=== PATIENT | female | born 1940 | race Two or more races ===

== ENCOUNTER 2024-07-15 19:13 | Inpatient (IN) | payer OTHER ==
[~2024-07-15] VITALS: Ht 152.4 cm; Wt 55.4 kg
--- NOTE | 2024-07-15 19:30 | ED.PDOC ---
HPI Comments 83-year-old female came to ER via EMS for chest pains. Patient has history of hypertension, diabetes, kidney failure, states she has been feeling unwell for the past 5 days, weakness, shortness of breath, fatigability. Noted fluctuating blood pressure despite medications (200/100 mmHg) For the past 2 days, she has been experiencing left-sided chest pains chest pains, tight, burning, intermittent and nonradiating. Chief Complaint: Chest pain Time Seen by MD: 19:29 Reviewed Notes: Hoof Trimmer Notes Information Source: Patient, Emergency Med Personnel Mode of Arrival: EMS Severity: Moderate Timing: Days Duration: Intermittent Prehospital treatment: 12 Lead EKG Location: Chest (L) Radiation: No Radiation Quality: Burning, Tightness Onset: With Light Exertion Cardiac Risk Factors: HTN, Diabetes PE Risk Factors: None History of: Similar pain in past Associated Signs and Symptoms: SOB Past Medical History PAST MEDICAL HISTORY: CKF, DM, HTN, Thyroid Surgical History: Denies all surgeries PULLER MACHINE History: Denies all PULLER MACHINE Hx Family History Family History: Reviewed,noncontributory to illness Social History Smoker: Non-Smoker Alcohol: Denies ETOH Use Drugs: Denies Drug Use Lives In: Home Constitutional: denies: chills, diaphoresis, fatigue, fever, malaise, sweats, weakness, others EENTM: denies: blurred vision, double vision, ear bleeding, ear discharge, ear drainage, ear pain, ear ringing, eye pain, eye redness, hearing loss, mouth pain, mouth swelling, nasal discharge, nose bleeding, nose congestion, nose pain, photophobia, tearing, throat pain, throat swelling, voice changes, others Respiratory: denies: cough, hemoptysis, orthopnea, SOB at rest, shortness of breath, SOB with excertion, stridor, wheezing, others Cardiovascular: reports: chest pain; denies: dizzy spells, diaphoresis, Dyspnea on exertion, edema, irregular heart beat, left arm pain, lightheadedness, palpitations, PND, syncope, others Gastrointestinal: denies: abdomen distended, abdominal pain, blood streaked bowels, constipated, diarrhea, dysphagia, difficulty swallowing, hematemesis, melena, nausea, poor appetite, poor fluid intake, rectal bleeding, rectal pain, vomiting, others Genitourinary: denies: abnormal vagina bleeding, burning, dyspareunia, dysuria, flank pain, frequency, hematuria, incontinence, pain, , vagina discharge, urgency, others Neurological: denies: dizziness, fainting, headache, left sided numbness, left sided weakness, numbness, paresthesia, pre-existing deficit, right sided numbness, right sided weakness, seizure, speech problems, tingling, tremors, weakness, others Musculoskeletal: denies: back pain, gout, joint pain, joint swelling, muscle pain, muscle stiffness, neck pain, others Integumetry: denies: bruises, change in color, change in hair/nails, dryness, laceration, lesions, lumps, rash, wounds, others Allergic/Immunocompromised: denies: Difficulty Healing, Frequent Infections, Hives, Itching, others Hematologic/Lymphatic: denies: anemia, blood clots, easy bleeding, easy bruising, swollen glands, others Endocrine: denies: excessive hunger, excessive sweating, excessive thirst, excessive urination, flushing, intolerance to cold, intolerance to heat, unexplained weight gain, unexplained weight loss, others Psychiatric: denies: anxiety, bipolar disorder, depression, hopeless, panic disorder, schizophrenia, sleepless, suicidal, others Physical Exam General Appearance: No Apparent Distress, Normal HEENT: Normal ENT Inspection, Pharynx Normal, TMs Normal Neck: Full Range of Motion, Non-Tender, Normal, Normal Inspection Respiratory: Chest Non-Tender, Lungs Clear, No Accessory Muscle Use, No Respiratory Distress, Normal Breath Sounds Cardiovascular: No Edema, No JVD, No Murmur, No Gallop, Normal Peripheral Pulses, Regular Rate/Rhythm Breast Exam: Deferred Gastrointestinal: No Organomegaly, Non Tender, No Pulsatile Mass, Normal Bowel Sounds, Soft Genitalia: Deferred Pelvic: Deferred Rectal: Deferred Extremities: No calf tenderness, Normal capillary refill, Normal inspection, Normal range of motion, Non-tender, No pedal edema Musculoskeletal : Apperance: Normal Neurologic: Alert, exerciser II-XII nml as Tested, No Motor Deficits, Normal Affect, Normal Mood, No Sensory Deficits Cerebellar Function: Normal Reflexes: Normal Skin: Dry, Normal Color, Warm Lymphatic: No Adenopathy Was a procedure done? Was a procedure done?: No CP Differential Dx Differential Diagnosis: Angina, Anxiety / Panic Attack Differential Diagnosis: HTN Essential, HTN Accelerated Differential Diagnosis: Angina, Chest Wall Pain, Costochondritis, Esophageal reflux/spasm, Gastritis, Myocardial Infarction X-Ray, Labs, Meds, VS Vital Signs Date Time Temp Pulse Resp B/P (MAP) Pulse Ox O2 Delivery O2 Flow Rate FiO2 07/15/24 20:23 77 07/15/24 20:02 77 12 96 Room Air* 0 21 07/15/24 19:57 98.1 75 13 166/66 (99) 97 98.1 07/15/24 19:23 87 07/15/24 19:13 97.9 102 18 190/79 (116) 96 Lab Test 07/15/24 20:25 07/15/24 19:30 Range/Units Troponin I High Sensitivity 3 L 4 </=34 ng/L White Blood Count 13.0 H 4.4-10.8 10^3/uL Red Blood Count 4.69 4.0-5.20 10^6/uL Hemoglobin 14.7 12.2-16.2 g/dL Hematocrit 44.5 36.0-46.0 % Mean Corpuscular Volume 94.9 80.0-100.0 fL Mean Corpuscular Hemoglobin 31.4 28.0-32.0 pg Mean Corpuscular Hemoglobin Concent 33.1 32.0-36.0 g/dL Red Cell Distribution Width 12.9 11.8-14.3 % Platelet Count 313 140-450 10^3/uL Mean Platelet Volume 7.9 6.9-10.8 fL Neutrophils (%) (Auto) 67.3 37.0-80.0 % Lymphocytes (%) (Auto) 24.4 10.0-50.0 % Monocytes (%) (Auto) 6.1 0.0-12.0 % Eosinophils (%) (Auto) 1.7 0.0-7.0 % Basophils (%) (Auto) 0.5 0.0-2.0 % Neutrophils # (Auto) 8.7 H 1.6-8.6 10 ^3/uL Lymphocytes # (Auto) 3.2 0.4-5.4 10 ^3/uL Monocytes # (Auto) 0.8 0-1.3 10 ^3/uL Eosinophils # (Auto) 0.2 0-0.8 10 ^3/uL Basophils # (Auto) 0.1 0-0.2 10 ^3/uL Nucleated Red Blood Cells 0.1 % Sodium Level 139 136-145 mmol/L Potassium Level 4.1 3.5-5.1 mmol/L Chloride Level 110 H 98-107 mmol/L Carbon Dioxide Level 20 20-31 mmol/L Anion Gap 9 5-15 Blood Urea Nitrogen 27 H 9-23 mg/dL Creatinine 1.33 H 0.550-1.02 mg/dL Glomerular Filtration Rate Calc 40 >90 mL/min BUN/Creatinine Ratio 20.3 H 10.0-20.0 Serum Glucose 159 H 74-106 mg/dL Calcium Level 10.3 8.7-10.4 mg/dL B-Type Natriuretic Peptide 27.70 0-100 pg/mL CHEST RADIOGRAPH Indication: chest pain Technique: Single frontal view of the chest was obtained Comparison: None FINDINGS: Lines and Tubes: None Lungs: No focal consolidation. Pleura: No effusion. No pneumothorax. Cardiomediastinal contours: Unremarkable. Mild atherosclerotic calcification and uncoiling of the aorta Bones: No acute osseous abnormality. IMPRESSION: No acute cardiopulmonary disease. Time of 1ST Reevaluation: 19:24 Reevaluation 1ST: Unchanged Patient Education/Counseling: Diagnosis, Treatment Family Education/Counseling: No Family Present Departure 1 Departure Time of Disposition: 21:52 (Patient presented with chest pain that was concerning for possible STEMI, ACS, PE, Pneumonia, Muscle Strain, COPD, Dissection. Data: 1. I ordered and reviewed the result of at least 3 labs including a CBC, BMP, and Troponin. 2. I independently interpreted the following tests: EKG which shows sinus arrhythmia and Chest X-ray which shows benign chest.Risk:This patient has a high risk of morbidity due to further diagnostic testing or treatment and may suffer from an acute cardiac or respiratory disorder. Workup reveals concern for ACS and patient should be admitted for further workup and possible expert consultation. ) Impression: Primary Impression: Acute chest pain Additional Impression: Hypertensive emergency Disposition: 09 ADMITTED INPATIENT Admit to: Med Surg Condition: Serious Critical Care Note Critical Care Time?: Yes (35 min-critical care time only) Critical care comment: Active chest pains Authorized and Performed by: Jose Baxter MD Total critical care time: Approximately 32 minutes Due to a high probability of clinically significant, life threatening deterioration, the patient required my highest level of preparedness to intervene emergently and I personally spent this critical care time directly and personally managing the patient. This critical care time included obtaining a history; examining the patient; pulse oximetry; ordering and review of studies; arranging urgent treatment with development of a management plan; evaluation of patient's response to treatment; frequent reassessment; and, discussions with other providers. This critical care time was performed to assess and manage the high probability of imminent, life-threatening deterioration that could result in multi-organ failure. It was exclusive of separately billable procedures and treating other patients and teaching time. Please see my other sections and the rest of the note for further information on patient assessment and treatment. Stability Stability form required: No Heart Score Heart Score: Heart Score Response (Comments) Value History Moderate Suspicious 1 EKG Repolarization Disturb 1 Age >65 2 Risk Factors >3 or Hx ASHD 2 Troponin Normal limit 0 Total 6 I personally scribed for JOSE BAXTER MD ([email or web address]) on 07/15/24 at 19:30. Electronically submitted by Ravinder Nelson ([facility]). I personally scribed for JOSE BAXTER MD ([email or web address]) on 07/15/24 at 20:57. Electronically submitted by Ravinder Nelson ([email or web address]). JOSE BAXTER MD Jul 15, 2024 19:30
[2024-07-15 20:02] VITALS: PULSE 77; RESP 12; O2SAT 96
[2024-07-15 20:08] LABS: Basophils # (auto) 0.1 10 ^3/uL (0-0.2); Basophils % (auto) 0.5 % (0.0-2.0); Eosinophils # (auto) 0.2 10 ^3/uL (0-0.8); Eosinophils % (auto) 1.7 % (0.0-7.0); Hematocrit 44.5 % (36.0-46.0); Hemoglobin 14.7 g/dL (12.2-16.2); Lymphocytes # (auto) 3.2 10 ^3/uL (0.4-5.4); Lymphocytes % (auto) 24.4 % (10.0-50.0); Mean Corpuscular Hemoglobin 31.4 pg (28.0-32.0); Mean Corpuscular Hgb Conc. 33.1 g/dL (32.0-36.0); Mean Corpuscular Volume 94.9 fL (80.0-100.0); Monocytes # (auto) 0.8 10 ^3/uL (0-1.3); Monocytes % (auto) 6.1 % (0.0-12.0); Neutrophils # (auto) 8.7 10 ^3/uL (1.6-8.6); Neutrophils % (auto) 67.3 % (37.0-80.0); Nucleated Red Blood Cells % 0.1 %; Platelet Count (auto) 313 10^3/uL (140-450); Red Blood Cells 4.69 10^6/uL (4.0-5.20); Red Cell Distribution Width 12.9 % (11.8-14.3)
[2024-07-15 20:15] LABS: Potassium 4.1 mmol/L (3.5-5.1); Sodium 139 mmol/L (136-145)
[2024-07-15 20:16] LABS: Anion Gap 9 (5-15); Calcium 10.3 mg/dL (8.7-10.4); Carbon Dioxide 20 mmol/L (20-31)
--- NOTE | 2024-07-15 20:16 | DVH ---
CHEST RADIOGRAPH Indication: chest pain Technique: Single frontal view of the chest was obtained Comparison: None FINDINGS: Lines and Tubes: None Lungs: No focal consolidation. Pleura: No effusion. No pneumothorax. Cardiomediastinal contours: Unremarkable. Mild atherosclerotic calcification and uncoiling of the ao rta Bones: No acute osseous abnormality. IMPRESSION: No acute cardiopulmonary disease.
[2024-07-15 20:22] LABS: BUN/Creatinine Ratio 20.3 (10.0-20.0)
[2024-07-15 20:41] LABS: Blood Urea Nitrogen 27 mg/dL (9-23); Chloride 110 mmol/L (98-107); Glucose 159 mg/dL (74-106)
--- NOTE | 2024-07-15 22:25 | ECG ---
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
--- NOTE | 2024-07-15 22:25 | ECG ---
[facility] Test Date: 2024-07-15 Test Time: 20:23:58 Pat Name: MARTI MEZA Department: ER Room: Gender: F Gig Tender: PENNY : 1940 Requested By: JOSE URBINA Order Number: [id number] Reading MD: Measurements Intervals [place] Rate: 77 P: 21 MT: 152 QRS: -28 QRSD: 96 T: 27 QT: 382 QTc: 433 Interpretive Statements Sinus rhythm Abnormal R-wave progression, late transition Left ventricular hypertrophy Baseline wander in lead(s) I,III,aVL,V2 Please click the below link to view image of tracing.
--- NOTE | 2024-07-15 22:26 | ECG ---
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
[2024-07-15] MEDS ORDERED: MORPHINE SULFATE INJ 2 MG/ml SYRG IV PRN (23:00)
[2024-07-15] MEDS ORDERED: ACETAMINOPHEN 325 MG TAB PO PRN (23:00)
[2024-07-15] MEDS ORDERED: DEXTROSE (50%) 50ML SYRG IV PRN (23:00)
[2024-07-15] MEDS ORDERED: DOCUSATE SOD 100 MG CAP PO PRN (23:00)
[2024-07-15] MEDS ORDERED: ONDANSETRON HCL 4 MG/2 ML VIAL IV PRN (23:00)
[2024-07-15] MEDS ORDERED: NITROGLYCERIN 0.4 MG SL TAB SL PRN (23:00)
[2024-07-15] MEDS ORDERED: hydrALAZINE HCL 20 MG/ML VL IV PRN (23:00)
--- NOTE | 2024-07-15 23:19 | DVHHP2 ---
History of Present Illness Reason for Visit: Acute chest pain History of Present Illness The patient is a 83-year-old female with past medical history of chronic kidney failure, DM, hypertension, and thyroid disease who presented to [facility] ED with complaint of chest pain..Patient reports symptoms progressively get worse with left-sided chest pain, intermittent, nonradiating, associated weakness, shortness of breath, fatigue, getting worse that prompted this visit. Patient was seen and evaluated in the ED, laboratory data shows WBC 13.0, platelets 313, sodium 139, potassium 4.1, BUN 27, creatinine 1.33, GFR 40, glucose 159, troponin 4, BNP 27.70, blood pressure 190/79 trending down to 158/ 68, pulse 76, temperature 98.0 F, O2 saturation 98% on room air. Chest x-ray show no acute cardiopulmonary disease. Please see medication orders section in the computer. On my assessment, patient denies chest pain at this moment, no headache, no dizziness, no diaphoresis, no nausea, no vomiting, no fever, no chills. Patient was admitted for further evaluation and medical management. Past Medical History CKF, DM, HTN, Thyroid Past Surgical History Denies all surgeries Family History Reviewed, noncontributory to the management of this case. Past Social History The patient lives at home, denies smoking, alcohol or illicit drugs abuse. Review of Systems Constitutional: Yes: Weakness; No: Fever, Chills, Sweats, Malaise, Other Eyes: No: Pain, Vision change, Conjunctivae inflammation, Eyelid inflammation, Other, Redness ENT: No: Ear pain, Ear discharge, Nose pain, Nose discharge, Nose congestion, Mouth pain, Mouth swelling, Throat pain, Throat swelling, Other Respiratory: Shortness of breath; No: Cough, Dry, SOB with excertion, Wheezing, Hemoptysis, Pleuritic Pain, Sputum, Wheezing, Other Cardiovascular: Chest Pain; No: Palpitations, Orthopnea, Paroxysmal Noc. Dyspnea, Edema, Lt Headedness, Other Gastrointestinal: No: Nausea, Vomiting, Abdominal Pain, Diarrhea, Constipation, Melena, Hematochezia, Other Genitourinary: No Dysuria, No Frequency, No Incontinence, No Hematuria, No Retention, No Other Musculoskeletal: No: other, neck pain, shoulder pain, arm pain, back pain, hand pain, leg pain, foot pain Skin: No: Rash, Lesions, Jaundice, Bruising, Other Neurological: No: Weakness, Numbness, Incoordination, Change in speech, Confusion, Seizures, Other Exam Vital Signs Vital Signs Date Time Temp Pulse Resp B/P (MAP) Pulse Ox O2 Delivery O2 Flow Rate FiO2 07/15/24 22:15 71 07/15/24 22:00 98.0 14 158/68 (98) 98 98.0 07/15/24 20:02 Room Air* 0 21 General Appearance: Alert, Oriented X3, Cooperative, No acute distress HEENT: Atraumatic, PERRLA, EOMI, Mucous membr. moist/pink Respiratory: Clear to auscultation, Normal air movement Cardiovascular: Regular rate, Normal S1, Normal S2, No murmurs Abdominal: Normal bowel sounds, Soft, No tenderness, No hepatospenomegaly, No masses Extremities: No clubbing, No cyanosis, No edema, Normal pulses, No tenderness/swelling Skin: No rashes, No breakdown, No significant lesion Neuro: Normal speech, Normal tone, Sensation intact, Cranial nerves 3-12 NL, Reflexes 2+, Other (Generalized weakness) Psych/Mental Status: Mental status NL, Mood NL Labs/Xrays Labs Test 07/15/24 22:25 07/15/24 19:30 Range/Units White Blood Count 13.0 H 4.4-10.8 10^3/uL Red Blood Count 4.69 4.0-5.20 10^6/uL Hemoglobin 14.7 12.2-16.2 g/dL Hematocrit 44.5 36.0-46.0 % Mean Corpuscular Volume 94.9 80.0-100.0 fL Mean Corpuscular Hemoglobin 31.4 28.0-32.0 pg Mean Corpuscular Hemoglobin Concent 33.1 32.0-36.0 g/dL Red Cell Distribution Width 12.9 11.8-14.3 % Platelet Count 313 140-450 10^3/uL Mean Platelet Volume 7.9 6.9-10.8 fL Neutrophils (%) (Auto) 67.3 37.0-80.0 % Lymphocytes (%) (Auto) 24.4 10.0-50.0 % Monocytes (%) (Auto) 6.1 0.0-12.0 % Eosinophils (%) (Auto) 1.7 0.0-7.0 % Basophils (%) (Auto) 0.5 0.0-2.0 % Neutrophils # (Auto) 8.7 H 1.6-8.6 10 ^3/uL Lymphocytes # (Auto) 3.2 0.4-5.4 10 ^3/uL Monocytes # (Auto) 0.8 0-1.3 10 ^3/uL Eosinophils # (Auto) 0.2 0-0.8 10 ^3/uL Basophils # (Auto) 0.1 0-0.2 10 ^3/uL Nucleated Red Blood Cells 0.1 % Sodium Level 139 136-145 mmol/L Potassium Level 4.1 3.5-5.1 mmol/L Chloride Level 110 H 98-107 mmol/L Carbon Dioxide Level 20 20-31 mmol/L Anion Gap 9 5-15 Blood Urea Nitrogen 27 H 9-23 mg/dL Creatinine 1.33 H 0.550-1.02 mg/dL Glomerular Filtration Rate Calc 40 >90 mL/min BUN/Creatinine Ratio 20.3 H 10.0-20.0 Serum Glucose 159 H 74-106 mg/dL Calcium Level 10.3 8.7-10.4 mg/dL B-Type Natriuretic Peptide 27.70 0-100 pg/mL PATIENT: MARTI MEZA ACCT: [id number] UNIT: [id number] : 1940 LOC: ER ROOM / BED: / AGE / SEX: 83 / F ADM STATUS: REG ER SERVICE 18 ORDERING PHYSICIAN: JOSE URBINA MD PROCEDURE(s): CXRP - CHEST PORTABLE REASON: chest pain ORDER NUMBER(s): [id number], ACCESSION NUMBER(s): [id number] CHEST RADIOGRAPH Indication: chest pain Technique: Single frontal view of the chest was obtained Comparison: None FINDINGS: Lines and Tubes: None Lungs: No focal consolidation. Pleura: No effusion. No pneumothorax. Cardiomediastinal contours: Unremarkable. Mild atherosclerotic calcification and uncoiling of the aorta Bones: No acute osseous abnormality. IMPRESSION: No acute cardiopulmonary disease. Assessment/Plan Assessment/Plan Acute chest pain Acute renal injury Leukocytosis, unspecified Hypertensive emergency Diabetes mellitus with hyperglycemia Plan 1. Admit to telemetry unit 2. Breathing treatment 3. Pain control management 4. Management of fluids and electrolytes 5. Consultation for hospitalist 6. Diagnostic tests chest x-ray 7. DVT prophylaxis-on aspirin 8. Repeat labs CBC, CMP in a.m. 9. Continue with current medical management 10. Treatment plan discussed with patient and RN. Patient verbalized understanding. Plan discussed with: Patient, Other (RN) My Orders Orders - EMERY GALARZA DNP Procedure Category Date Status Time Aspirin Tablet PHA 07/16/24 Verified 10:00 Problem List: (1) Acute chest pain (2) Acute renal injury (3) Hypertensive emergency (4) Leukocytosis, unspecified (5) Diabetes mellitus with hyperglycemia Date of Service: Jul 15, 2024 Billing Provider: EMERY GALARZA DNP Common Visit Codes: [id number] INP/OBS CARE (HIGH) EMERY GALARZA DNP Jul 15, 2024 23:19
[2024-07-16] VITALS (7 sets, daily range): BP systolic 122–142; BP diastolic 48–70; PULSE 63–73; RESP 12–18; TEMP 97.5–98.6; O2SAT 92–98
[2024-07-16] MEDS: ALPRAZolam 0.25 MG TAB PO SCH (00:47)
[2024-07-16 03:14] LABS: Basophils # (auto) 0.1 10 ^3/uL (0-0.2); Basophils % (auto) 0.4 % (0.0-2.0); Eosinophils # (auto) 0.2 10 ^3/uL (0-0.8); Eosinophils % (auto) 1.9 % (0.0-7.0); Hematocrit 37.2 % (36.0-46.0); Hemoglobin 12.5 g/dL (12.2-16.2); Lymphocytes # (auto) 3.2 10 ^3/uL (0.4-5.4); Lymphocytes % (auto) 26.7 % (10.0-50.0); Mean Corpuscular Hgb Conc. 33.7 g/dL (32.0-36.0); Monocytes # (auto) 0.9 10 ^3/uL (0-1.3); Monocytes % (auto) 7.5 % (0.0-12.0); Neutrophils # (auto) 7.6 10 ^3/uL (1.6-8.6); Neutrophils % (auto) 63.5 % (37.0-80.0); Nucleated Red Blood Cells % 0.1 %; Platelet Count (auto) 284 10^3/uL (140-450); Red Blood Cells 3.92 10^6/uL (4.0-5.20); Red Cell Distribution Width 12.8 % (11.8-14.3)
[2024-07-16 03:38] LABS: Alanine Aminotransferase 13 U/L (7-40); Albumin 3.9 g/dL (3.2-4.8); Alkaline Phosphatase 82 U/L (46-116); Anion Gap 7 (5-15); Aspartate Aminotransferase 17 U/L (13-40); Bilirubin, Total 0.3 mg/dL (0.2-1.0); Blood Urea Nitrogen 22 mg/dL (9-23); Calcium 9.9 mg/dL (8.7-10.4); Carbon Dioxide 24 mmol/L (20-31); Glucose 86 mg/dL (74-106); Potassium 4.1 mmol/L (3.5-5.1); Sodium 141 mmol/L (136-145)
[2024-07-16 03:39] LABS: Total Protein 5.8 g/dL (5.7-8.2)
[2024-07-16 03:45] LABS: Chloride 110 mmol/L (98-107)
[2024-07-16] MEDS: SODIUM CHLOR 0.9% PF (SALINE LOCK) 10ML VIAL/SYR IV SCH (06:00)
[2024-07-16] MEDS: LEVOTHYROXINE SODIUM 25 MCG TAB PO SCH (06:00)
[2024-07-16] MEDS: ACCU-CHEK COMFORT CURVE STRIP VI SCH (07:00)
[2024-07-16] MEDS: InsuLIN REG 1unit/0.01ml Soln (100units/ml) SC SCH ×2 (07:00→22:00)
[2024-07-16] MEDS: ASPirin 81 mg TAB PO SCH (12:47)
[2024-07-16] MEDS: FAMOTIDINE (10MG/ML) 2ML VL IV SCH (12:47)
[2024-07-16] MEDS: LISINOPRIL 5 MG TAB PO SCH (12:48)
[2024-07-16] MEDS: amLODIPine BESYLATE 5 MG TAB PO SCH (12:50)
[2024-07-16] MEDS: CARVEDILOL 3.125 MG TAB PO SCH (12:50)
[2024-07-16] MEDS ORDERED: MAGN400T40 PO (14:25)
[2024-07-16] MEDS ORDERED: TRAM50TA2 PO (14:25)
[2024-07-16] MEDS ORDERED: B-COCAP34 OR (14:25)
[2024-07-16] MEDS ORDERED: AMLO1TAB22 PO (14:25)
[2024-07-16] MEDS ORDERED: CYAN-17 PO (14:25)
[2024-07-16] MEDS ORDERED: ASPI1TAB20 PO (14:25)
[2024-07-16] MEDS ORDERED: CHOL20007 PO (14:25)
[2024-07-16] MEDS ORDERED: MULT-1018 PO (14:25)
[2024-07-16] MEDS ORDERED: LISI10TA34 PO (14:25)
[2024-07-16] MEDS ORDERED: PANT40TA2 PO (14:25)
[2024-07-16] MEDS ORDERED: LEVO50TA7 PO (14:25)
[2024-07-16] MEDS ORDERED: COEN400C8 OR (14:25)
[2024-07-16] MEDS ORDERED: INSLANTI SC (14:25)
[2024-07-16] MEDS ORDERED: MAGN100T6 OR (14:25)
[2024-07-16] MEDS ORDERED: EMPA1TAB PO (14:25)
[2024-07-16] MEDS ORDERED: METF500S3 PO (14:25)
[2024-07-16] MEDS ORDERED: CARV25TA55 PO (14:25)
[2024-07-16] MEDS: ATORVASTATIN 20 MG TAB PO SCH (22:07)
[2024-07-17] VITALS (8 sets, daily range): BP systolic 117–144; BP diastolic 51–69; PULSE 56–70; RESP 16–18; TEMP 97.9–98.4; O2SAT 94–97
[2024-07-17] MEDS: HYDROcodone-ACET 5/325MG TAB PO PRN (05:47)
--- NOTE | 2024-07-17 14:41 | DVHINCON2 ---
Date Seen: Jul 17, 2024 Referring Physician MD Jocelynn Reason for Consultation Chest pain and hypertension History of Present Illness This is an 83-year-old female patient who presents to emergency room with chief complaint of chest pain. The patient reports that the chest pain has been int ermittently going on for approximately one week. She describes it as unprovoked, squeezing in nature, left-sided, and radiating to her left shoulder and down her left arm. The patient does note that she has been recently diagnosed with a torn left shoulder rotator cuff which has not been repaired so she was assuming that the left arm pain was attributed to that. She denies any associated symptoms. The patient reports that she has accidentally missed doses of her antihypertensive and was having trouble controlling her blood pressure at home. Upon emergency room arrival, the patient's blood pressure reached as high as 190/79. Cardiology is now being consulted for chest pain and hypertensive urgency. At the time of assessment, the patient denies any chest pain and blood pressure is now well controlled. Initial twelve lead electrocardiogram reveals normal sinus rhythm with baseline wander seen in multiple leads. Serial troponin levels have been negative. Significant past medical history includes coronary artery disease status post PTCA x 4 JOSE (on ASA), myocardial infarction, hypertension, dyslipidemia, chronic kidney disease, thyroid disease, and type 2 diabetes mellitus . The patient reports that she sees cold reduction roller in the outpatient setting. Past Medical History Past medical history reviewed. No other significant than mentioned above. Past Surgical History Back surgery Family History: Patient reports no known family medical history. Family History Family history reviewed. Social History Denies the use of tobacco, alcohol or illicit drugs. Allergies: Coded Allergies: NO KNOWN ALLERGIES (Unverified , 07/16/24) Home Meds Reported Medications Coenzyme Q10 (Ubidecarenone) (COQ-10) 400 Mg Cap, 400 MG OR, CAP 07/16/24 B-Complex Vitamins (B Complex) Cap, 1 OR, CAP 07/16/24 Cholecalciferol (VITAMIN D3) 2,000 Unit Tab, 1 TAB PO DAILY, #30 TAB 5 Refills 07/16/24 Multiple Vitamin (Multivitamins) Tab, 1 TAB PO DAILY, #90 TAB 3 Refills 07/16/24 Cyanocobalamin (B12) 1,000 Mcg Cap, 1000 MCG PO, CAP 07/16/24 Magnesium Oxide (MAGNESIUM OXIDE) 400 Mg Tab, 1 TAB PO DAILY, #30 TAB 5 Refills 07/16/24 Magnesium Citrate (MAGNESIUM CITRATE) 100 Mg Tab, 100 MG OR PRN, TAB 07/16/24 Insulin Glargine (Lantus) 100 Unit/Ml Inj, 15 UNIT SC DAILY, INJ 07/16/24 Aspirin (Aspir-81) 81 Mg Tab, 1 TAB PO DAILY, #30 TAB 5 Refills 07/16/24 Empagliflozin (Jardiance) 10 Mg Tab, 10 MG PO DAILY, TAB 07/16/24 Pantoprazole Sodium Sesquihydr (Protonix) 40 Mg Tab, 20 MG PO DAILY, #30 TAB 07/16/24 Lisinopril (Lisinopril) 10 Mg Tab, 10 MG PO DAILY, TAB 07/16/24 Amlodipine Besylate (Amlodipine Besylate) 5 Mg Tab, 10 MG PO DAILY for 30 Days, MG 07/16/24 Levothyroxine Sodium (Levothyroxine Sodium) 50 Mcg Tab, 75 MCG PO QAM for 30 Days, MCG 07/16/24 Tramadol Hcl (Tramadol Hcl) 50 Mg Tab, 25 MG PO Q12HP PRN for PAIN SCALE 7 THRU 10, MG 07/16/24 Carvedilol (Carvedilol) 25 Mg Tab, 25 MG PO Q12HR for 30 Days, MG 07/16/24 Metformin HCl (Metformin Hydrochloride) 500 Mg/5 Ml Aminata, 500 MG PO BID, ML 07/16/24 Home Meds Home medications reviewed. Current Medications Current Medications Medications (Trade) Dose Ordered Sig/Marko Route PRN Reason Start Time Stop Time Status Last Admin Atorvastatin Calcium (Lipitor) 10 mg HS PO 07/16/24 22:00 07/16/24 22:07 Insulin Human Regular (InsuLIN R) HS SC 07/16/24 22:00 Review of Systems Constitutional: No symptom reported Ears, Nose, & Throat: No symptom reported Eyes: No symptom reported Neurological: No symptoms reported Pulmonary/Respiratory: No symptoms reported Cardiovascular: Chest pain Gastrointestinal: No symptom reported Genitourinary: No symptom reported Musculoskeletal: No symptom reported Skin: No symptom reported Psychiatric: No symptom reported Endocrine: No symptom reported Hematologic/Lymphatic: No symptom reported Vital Signs Vital Signs Date Time Temp Pulse Resp B/P (MAP) Pulse Ox O2 Delivery O2 Flow Rate FiO2 07/17/24 10:39 60 130/56 07/17/24 08:59 97.9 18 96 97.9 07/16/24 20:00 Room Air* 0 21 Physical Exam General Appearance: Cooperative. Well-developed. Well-nourished. No acute distress. Pulmonary/Respiratory: Clear, bilateral breaths sounds. Cardiovascular/Chest: Regular rate and rhythm. Peripheral Pulses: 2+ Radial (R). 2+ Radial (L). 2+ Pedal (R). 2+ Pedal (L) Abdominal Exam: Normal bowel sounds. Ankle Exam: Negative ankle edema Lower extremities: Negative lower extremity edema Neuro/Mental Status: A/OX4, coherent. Thoughts/Psych: Normal thought pattern. Appropriate mood and affect. Good judgment and insight. Appearance: No acute distress. Skin Exam: Normal inspection. Normal color. Warm and dry. Labs/Diagnostic Data Labs Test 07/17/24 05:56 07/16/24 02:56 07/15/24 22:25 07/15/24 19:30 Range/Units POC Glucose 142 H 70-106 mg/dl White Blood Count 12.0 H 4.4-10.8 10^3/uL Red Blood Count 3.92 L 4.0-5.20 10^6/uL Hemoglobin 12.5 12.2-16.2 g/dL Hematocrit 37.2 # 36.0-46.0 % Mean Corpuscular Volume 95.0 80.0-100.0 fL Mean Corpuscular Hemoglobin 32.0 28.0-32.0 pg Mean Corpuscular Hemoglobin Concent 33.7 32.0-36.0 g/dL Red Cell Distribution Width 12.8 11.8-14.3 % Platelet Count 284 140-450 10^3/uL Mean Platelet Volume 7.6 6.9-10.8 fL Neutrophils (%) (Auto) 63.5 37.0-80.0 % Lymphocytes (%) (Auto) 26.7 10.0-50.0 % Monocytes (%) (Auto) 7.5 0.0-12.0 % Eosinophils (%) (Auto) 1.9 0.0-7.0 % Basophils (%) (Auto) 0.4 0.0-2.0 % Neutrophils # (Auto) 7.6 1.6-8.6 10 ^3/uL Lymphocytes # (Auto) 3.2 0.4-5.4 10 ^3/uL Monocytes # (Auto) 0.9 0-1.3 10 ^3/uL Eosinophils # (Auto) 0.2 0-0.8 10 ^3/uL Basophils # (Auto) 0.1 0-0.2 10 ^3/uL Nucleated Red Blood Cells 0.1 % Sodium Level 141 136-145 mmol/L Potassium Level 4.1 3.5-5.1 mmol/L Chloride Level 110 H 98-107 mmol/L Carbon Dioxide Level 24 20-31 mmol/L Anion Gap 7 5-15 Blood Urea Nitrogen 22 9-23 mg/dL Creatinine 1.16 H 0.550-1.02 mg/dL Glomerular Filtration Rate Calc 47 >90 mL/min BUN/Creatinine Ratio 19.0 10.0-20.0 Serum Glucose 86 74-106 mg/dL Calcium Level 9.9 8.7-10.4 mg/dL Total Bilirubin 0.3 0.2-1.0 mg/dL Aspartate Amino Transferase (AST) 17 13-40 U/L Alanine Aminotransferase (ALT) 13 7-40 U/L Alkaline Phosphatase 82 46-116 U/L Total Protein 5.8 5.7-8.2 g/dL Albumin 3.9 3.2-4.8 g/dL Troponin I High Sensitivity 5 </=34 ng/L Thyroid Stimulating Hormone (TSH) 1.83 0.55-4.78 uIU/mL B-Type Natriuretic Peptide 27.70 0-100 pg/mL Assessment Chest pain, rule out progressive coronary artery disease Coronary artery disease status post PTCA X 4 JOSE (on ASA) Hypertensive urgency, resolved Rule out structural heart disease History myocardial infarction Dyslipidemia Chronic kidney disease Thyroid disease Type 2 diabetes mellitus Plan/Recommendation We will continue with the following plan/recommendations (Dr. Lopez): * Transthoracic echocardiogram to evaluate cardiac function * Chest pain protocol * HEART score: 6 points (moderate) * Aggressive BP control * Single antiplatelet therapy and lipid-lowering agents * Recommend nuclear stress test-patient refused Patient seen and examined at bedside with . Given the patient's clinical presentation and significant cardiac history, we recommended that the patient undergo a nuclear stress test. At this time, the patient was adamantly refusing any further inpatient cardiac workup. Educated patient on need for further inpatient cardiac workup, she is still refusing. In setting of an unremarkable transthoracic echocardiogram, cardiology will sign off. The patient reports that she has a pending appointment with her primary cold reduction roller Dr. Alonso later this month. Thank you for allowing us to care for this patient. Please call with any questions or concerns. Critical care time spent: 40 minutes This medical document was created using an electronic medical record system with voice recognition software and computerized dictation system. Although this document has been carefully reviewed, there might still be some phonetic and typographical errors. Occasional wrong-word or ``sound-alike substitutions may have occurred due to the inherent limitations of voice recognition software. These areas are purely typographical due to imperfections of the software programs and do not reflect any compromise in the patient's medical care. Please read the chart carefully and recognize, using context, where these substitutions have occurred. Plan discussed with: Patient NYHA Physical activity limitations: NA Date of Service: Jul 17, 2024 Billing Provider: ELVIA ZUNIGA Cardiology Common Codes: [id number] INP/OBS CARE (High) Cardiology Consultation Codes: [id number] CONSULT <45MIN ELVIA ZUNIGA Jul 17, 2024 14:41
--- NOTE | 2024-07-17 23:38 | DVHPN2 ---
Subjective The patient seen and examined at bedside. Still have chest pain and shortness of breath. Reviewed: Care Plan, H&P, Labs, Medications, Previous Orders, Radiology Changes from previous H/P or p: No Changes Eyes: No Pain, No Vision change, No Conjunctivae inflammation, No Eyelid inflammation, No Other, No Redness ENT: No Ear pain, No Ear discharge, No Nose pain, No Nose discharge, No Nose congestion, No Mouth pain, No Mouth swelling, No Throat pain, No Throat swelling, No Other Cardiovascular: Chest Pain; No Palpitations, No Orthopnea, No Paroxysmal Noc. Dyspnea, No Edema, No Lt Headedness, No Other Respiratory: No Cough, No Dry; Shortness of breath; No SOB with excertion, No Wheezing, No Hemoptysis, No Pleuritic Pain, No Sputum, No Other Gastrointestinal: No Nausea, No Vomiting, No Abdominal Pain, No Diarrhea, No Constipation, No Melena, No Hematochezia, No Other Genitourinary: No Dysuria, No Frequency, No Incontinence, No Hematuria, No Retention, No Other Musculoskeletal: No other, No neck pain, No shoulder pain, No arm pain, No back pain, No hand pain, No leg pain, No foot pain Skin: No Rash, No Lesions, No Jaundice, No Bruising, No Other Objective Vitals Vital Signs Date Time Temp Pulse Resp B/P (MAP) Pulse Ox O2 Delivery O2 Flow Rate FiO2 07/16/24 21:36 70 144/46 07/16/24 21:00 98.4 18 97 98.4 07/16/24 20:00 Room Air* 0 21 Intake/Output Intake and Output 07/17/24 07:00 Intake Total 518 ml Balance 518 ml Intake Oral 518 ml # Voids 4 General Appearance: Alert, Oriented X3, Cooperative, No acute distress HEENT: Atraumatic, PERRLA, EOMI, Mucous membr. moist/pink Neck: Supple Lungs: Clear to auscultation, Normal air movement Cardiovascular: Regular rate, Normal S1, Normal S2, No murmurs, Gallops, Rubs Neuro: Cranial nerves 3-12 NL Psych/Mental Status: Mental status NL Medications Current Medications Medications Dose Ordered Sig/Marko Route Start Time Stop Time Status Last Admin Dose Admin Aspirin 81 mg DAILY PO 07/16/24 10:00 07/17/24 09:34 81 MG Atorvastatin Calcium 10 mg HS PO 07/16/24 22:00 07/16/24 22:07 10 MG Hydralazine HCl 10 mg Q6HP PRN IV 07/15/24 23:00 Amlodipine Besylate 5 mg DAILY PO 07/16/24 10:00 07/17/24 09:37 5 MG Carvedilol 6.25 mg Q12HR PO 07/16/24 10:00 07/17/24 21:36 6.25 MG Lisinopril 10 mg DAILY PO 07/16/24 10:00 07/17/24 09:38 10 MG Famotidine 20 mg DAILY IV 07/16/24 10:00 07/17/24 09:33 20 MG Levothyroxine Sodium 75 mcg QAM@0600 PO 07/16/24 06:00 07/17/24 05:41 75 MCG Diagnostic Test (Pha) 1 strip ACHS 07/16/24 07:00 07/17/24 21:40 1 STRIP Insulin Human Regular HS SC 07/16/24 22:00 07/17/24 21:46 2 UNITS Insulin Human Regular AC SC 07/16/24 07:00 07/17/24 17:00 6 UNITS Dextrose 50 ml UD PRN IV 07/15/24 23:00 Sodium Chloride 10 ml Q8HR IV 07/16/24 06:00 07/17/24 21:38 10 ML Acetaminophen/ Hydrocodone Bitart 1 tab Q4HP PRN PO 07/15/24 23:00 07/17/24 05:47 1 TAB Ondansetron HCl 4 mg Q4HP PRN IV 07/15/24 23:00 Docusate Sodium 100 mg BIDPRN PRN PO 07/15/24 23:00 Acetaminophen 650 mg Q6HP PRN PO 07/15/24 23:00 Nitroglycerin 0.4 mg Q5MINP PRN SL 07/15/24 23:00 Morphine Sulfate 2 mg Q30M PRN IV 07/15/24 23:00 Alprazolam 0.25 mg HS PO 07/16/24 00:45 07/17/24 21:39 0.25 MG Laboratory Results Laboratory Tests 07/16/24 02:56 Labs and/or images reviewed: Labs reviewed by me Assessment/Plan Assessment/Plan Acute chest pain Acute renal injury Leukocytosis, unspecified Hypertensive emergency Diabetes mellitus with hyperglycemia Continue current management. Continue IV fluid. Continue HTN meds. Continue sliding scale insulin. I will consult manager clinical research. Plan discussed with: Patient My Orders Orders - VAUGHN GRAY MD Procedure Category Date Status Time * Cardiology Consult CONS 07/17/24 Transmitted 14:03 Date of Service: Jul 16, 2024 Billing Provider: VAUGHN GRAY MD Common Visit Codes: [id number] INP/OBS CARE(HIGH) VAUGHN GRAY MD Jul 17, 2024 23:38
--- NOTE | 2024-07-17 23:38 | DVHPN2 ---
Subjective The patient seen and examined at bedside. Still have some chest heaviness. Reviewed: Care Plan, H&P, Labs, Medications, Previous Orders, Radiology Changes from previous H/P or p: No Changes Eyes: No Pain, No Vision change, No Conjunctivae inflammation, No Eyelid inflammation, No Other, No Redness ENT: No Ear pain, No Ear discharge, No Nose pain, No Nose discharge, No Nose congestion, No Mouth pain, No Mouth swelling, No Throat pain, No Throat swelling, No Other Cardiovascular: Chest Pain; No Palpitations, No Orthopnea, No Paroxysmal Noc. Dyspnea, No Edema, No Lt Headedness, No Other Respiratory: No Cough, No Dry; Shortness of breath; No SOB with excertion, No Wheezing, No Hemoptysis, No Pleuritic Pain, No Sputum, No Other Gastrointestinal: No Nausea, No Vomiting, No Abdominal Pain, No Diarrhea, No Constipation, No Melena, No Hematochezia, No Other Genitourinary: No Dysuria, No Frequency, No Incontinence, No Hematuria, No Retention, No Other Musculoskeletal: No other, No neck pain, No shoulder pain, No arm pain, No back pain, No hand pain, No leg pain, No foot pain Skin: No Rash, No Lesions, No Jaundice, No Bruising, No Other Objective Vitals Vital Signs Date Time Temp Pulse Resp B/P (MAP) Pulse Ox O2 Delivery O2 Flow Rate FiO2 07/17/24 21:36 70 144/46 07/17/24 21:00 98.4 18 97 98.4 07/17/24 20:00 Room Air* 0 21 Intake/Output Intake and Output 07/17/24 07:00 Intake Total 518 ml Balance 518 ml Intake Oral 518 ml # Voids 4 General Appearance: Alert, Oriented X3, Cooperative, No acute distress HEENT: Atraumatic, PERRLA, EOMI, Mucous membr. moist/pink Neck: Supple Lungs: Clear to auscultation, Normal air movement Neuro: Cranial nerves 3-12 NL Psych/Mental Status: Mental status NL Medications Current Medications Medications Dose Ordered Sig/Marko Route Start Time Stop Time Status Last Admin Dose Admin Aspirin 81 mg DAILY PO 07/16/24 10:00 07/17/24 09:34 81 MG Atorvastatin Calcium 10 mg HS PO 07/16/24 22:00 07/16/24 22:07 10 MG Hydralazine HCl 10 mg Q6HP PRN IV 07/15/24 23:00 Amlodipine Besylate 5 mg DAILY PO 07/16/24 10:00 07/17/24 09:37 5 MG Carvedilol 6.25 mg Q12HR PO 07/16/24 10:00 07/17/24 21:36 6.25 MG Lisinopril 10 mg DAILY PO 07/16/24 10:00 07/17/24 09:38 10 MG Famotidine 20 mg DAILY IV 07/16/24 10:00 07/17/24 09:33 20 MG Levothyroxine Sodium 75 mcg QAM@0600 PO 07/16/24 06:00 07/17/24 05:41 75 MCG Diagnostic Test (Pha) 1 strip ACHS 07/16/24 07:00 07/17/24 21:40 1 STRIP Insulin Human Regular HS SC 07/16/24 22:00 07/17/24 21:46 2 UNITS Insulin Human Regular AC SC 07/16/24 07:00 07/17/24 17:00 6 UNITS Dextrose 50 ml UD PRN IV 07/15/24 23:00 Sodium Chloride 10 ml Q8HR IV 07/16/24 06:00 07/17/24 21:38 10 ML Acetaminophen/ Hydrocodone Bitart 1 tab Q4HP PRN PO 07/15/24 23:00 07/17/24 05:47 1 TAB Ondansetron HCl 4 mg Q4HP PRN IV 07/15/24 23:00 Docusate Sodium 100 mg BIDPRN PRN PO 07/15/24 23:00 Acetaminophen 650 mg Q6HP PRN PO 07/15/24 23:00 Nitroglycerin 0.4 mg Q5MINP PRN SL 07/15/24 23:00 Morphine Sulfate 2 mg Q30M PRN IV 07/15/24 23:00 Alprazolam 0.25 mg HS PO 07/16/24 00:45 07/17/24 21:39 0.25 MG Laboratory Results Laboratory Tests 07/16/24 02:56 Labs and/or images reviewed: Labs reviewed by me Assessment/Plan Assessment/Plan Acute chest pain Acute renal injury Leukocytosis, unspecified Hypertensive emergency Diabetes mellitus with hyperglycemia Continue current management. Continue IV fluid. Continue HTN meds. Continue sliding scale insulin. Appreciate electric welder input. Waiting for echo. Plan discussed with: Patient My Orders Orders - VAUGHN GRAY MD Procedure Category Date Status Time * Cardiology Consult CONS 07/17/24 Transmitted 14:03 Date of Service: Jul 17, 2024 Billing Provider: VAUGHN GRAY MD Common Visit Codes: [id number] INP/OBS CARE(HIGH) VAUGHN GRAY MD Jul 17, 2024 23:38
[2024-07-18 05:00] VITALS: BP 134/63; PULSE 62; RESP 18; TEMP 98.4; O2SAT 94
[2024-07-18] MEDS ORDERED: EZET-10 PO (06:39)
[2024-07-18 08:00] VITALS: PULSE 60
[2024-07-18 08:15] VITALS: PULSE 59; RESP 18
[2024-07-18 09:00] VITALS: BP 146/67; PULSE 59; RESP 18; TEMP 97.9; O2SAT 96
--- NOTE | 2024-07-18 11:08 | DVHDS2 ---
Discharge Summary Date of Admission Jul 15, 2024 at 22:56 Date of Discharge: Jul 18, 2024 Labs/Diagnostic Data: Laboratory Results Test 07/18/24 05:46 07/16/24 02:56 07/15/24 22:25 07/15/24 19:30 POC Glucose 172 mg/dl (70-106) White Blood Count 12.0 10^3/uL (4.4-10.8) Red Blood Count 3.92 10^6/uL (4.0-5.20) Hemoglobin 12.5 g/dL (12.2-16.2) Hematocrit 37.2 % (36.0-46.0) Mean Corpuscular Volume 95.0 fL (80.0-100.0) Mean Corpuscular Hemoglobin 32.0 pg (28.0-32.0) Mean Corpuscular Hemoglobin Concent 33.7 g/dL (32.0-36.0) Red Cell Distribution Width 12.8 % (11.8-14.3) Platelet Count 284 10^3/uL (140-450) Mean Platelet Volume 7.6 fL (6.9-10.8) Neutrophils (%) (Auto) 63.5 % (37.0-80.0) Lymphocytes (%) (Auto) 26.7 % (10.0-50.0) Monocytes (%) (Auto) 7.5 % (0.0-12.0) Eosinophils (%) (Auto) 1.9 % (0.0-7.0) Basophils (%) (Auto) 0.4 % (0.0-2.0) Neutrophils # (Auto) 7.6 10 ^3/uL (1.6-8.6) Lymphocytes # (Auto) 3.2 10 ^3/uL (0.4-5.4) Monocytes # (Auto) 0.9 10 ^3/uL (0-1.3) Eosinophils # (Auto) 0.2 10 ^3/uL (0-0.8) Basophils # (Auto) 0.1 10 ^3/uL (0-0.2) Nucleated Red Blood Cells 0.1 % Sodium Level 141 mmol/L (136-145) Potassium Level 4.1 mmol/L (3.5-5.1) Chloride Level 110 mmol/L (98-107) Carbon Dioxide Level 24 mmol/L (20-31) Anion Gap 7 (5-15) Blood Urea Nitrogen 22 mg/dL (9-23) Creatinine 1.16 mg/dL (0.550-1.02) Glomerular Filtration Rate Calc 47 mL/min (>90) BUN/Creatinine Ratio 19.0 (10.0-20.0) Serum Glucose 86 mg/dL (74-106) Calcium Level 9.9 mg/dL (8.7-10.4) Total Bilirubin 0.3 mg/dL (0.2-1.0) Aspartate Amino Transferase (AST) 17 U/L (13-40) Alanine Aminotransferase (ALT) 13 U/L (7-40) Alkaline Phosphatase 82 U/L (46-116) Total Protein 5.8 g/dL (5.7-8.2) Albumin 3.9 g/dL (3.2-4.8) Troponin I High Sensitivity 5 ng/L (</=34) Thyroid Stimulating Hormone (TSH) 1.83 uIU/mL (0.55-4.78) B-Type Natriuretic Peptide 27.70 pg/mL (0-100) Other Laboratory Tests 07/16/24 02:56 Brief Hx & Hospital Course: Uncontrolled HTN Hypertensive urgency Angina pectoris CAD s/p PTCA x 4 3 years ago on Aspirin Mixed hyperlipidemia CKD DM2 Hypothyroidism She was admitted for high BP and chest pain Apparently the patient discovered that she was not taking her amlodipine 10 mg for about 2 weeks before she came here because she was confused on distributing her pills from her bottle. She came with chest pain and her troponins were negative. She was seen by Cardiology who recommended for her to have a stress test because of her history of heart disease and stents. She also was not taking her aspirin for about a month however she refused to have the stress test. She says she has a follow up with her outreach analyst in about a month from now and she would like to follow up with him as an outpatient. She says she is not symptomatic now Her troponins were negative Her blood pressure is better is 146/67 now She can be discharged home today to follow with her primary care physician and with her outreach analyst Continue the medications at home Continue aspirin 81 mg a day Continue amlodipine 10 mg daily and the rest of her home medications which include also Jardiance, Coreg, Zetia, levothyroxine, lisinopril, metformin Stable for discharge Condition at Discharge: Stable Final Diagnosis/Problems List Uncontrolled HTN Angina pectoris CAD Discharge Disposition: Home SNF Discharge Will this Physician continue t: No Discharge Instruct/Medications Diet: Cardiac 2g Na,low cholest Activity: No Restrictions, As Tolerated Follow Up/Referral: Dr. Ralph NINA Medications: Continue same home meds Discharge Statement: "Patient was advised to return to the ER or call 911 if any headaches, dizziness, shortness of breath, chest pain, abdominal pain, bleeding, fevers, or worsening of medical condition. Patient was counseled about treatment plan, medications, possible side effects, patientverbalized understanding. All questions were answered to the best of my ability. This discharge took greater then 30 minutes in planning, reviewing documentation, counseling the patient, and discussing with other team members." ASSESSMENT ASSESSMENT Assessment Uncontrolled HTN Angina pectoris CAD Date of Service: Jul 18, 2024 Billing Provider: BRIDGER ARAIZA MD Common Visit Codes: NOT BILLABLE BRIDGER ARAIZA MD Jul 18, 2024 11:08
[2024-07-18 11:24] VITALS: BP 146/67; PULSE 59
[2024-07-18] MEDS: amLODIPine BESYLATE 5 MG TAB PO ONE (12:23)
[2024-07-18 13:00] VITALS: BP_SYST 158; BP_SYST 164; BP_DIAS 70; BP_DIAS 78; PULSE 65; PULSE 68; RESP 20; TEMP 97.9; O2SAT 96
--- NOTE | 2024-07-18 13:31 | DVHSR ---
APPROVED REPORT EXAM: Two-dimensional and M-mode echocardiogram with Doppler and color Doppler. Blood Pressure: 134/63 mmHg INDICATION Evaluate cardiac function RISK FACTORS Height: 5', Weight: 122 DIMENSIONS LVDd4.1 (3.8-5.7cm)LA (2D)4.3 (1.9-4.0cm)Aortic Root3.1 (2.0-3.7cm) LVDs3.2 (2.5-4.0cm)LA (MM) (1.9-4.0cm)Aortic Cusp Exc1.7 (1.5-2.0cm) EF (%) 50.0 (55-70%)Rt. Atrium4.2 (1.9-4.0cm)Asc. Aorta3.4 cm IVSd1.2 (0.7-1.1cm)RV (D)4.0 (1.8-2.4cm) PWd0.9 (0.7-1.1cm) Mitral Valve MitralMitral Stenosis E wave0.82m/sMV Mean GR.mmHg A wave1.09m/sMV Peak GR.mmHg E/A ratio0.82D MVAcm2 DECEL [id number] 1/2 Timems Aortic Valve Aortic ValveAortic Stenosis V10.89m/Indira Mean GR.5mmHg V21.43m/Indira Peak GR.8mmHg LVOT Diameter1.9 (1.8-2.4cm)Doppler AVA1.76cm2 AI P 1/2 [id number] Pulmonic Valve V20.89m/s Tricuspid Valve TR Velocity2.57m/s [id number] Conclusion Technically good study. Sinus rhythm. Biatrial and RV enlargement. Aortic root enlargement. Valves appear to be structurally normal. Left ventricular function is preserved at 50%. Normal RV function. Mild mitral regurgitation. [id number] aortic insufficiency. Small pericardial effusion not hemodynamically significant.
[2024-07-19] MEDS ORDERED: amLODIPine BESYLATE 5 MG TAB PO SCH (10:00)
== END 2024-07-18 16:50 | disposition home or self-care (01) | DRG 305 ==
LOC: ER 19:13 → EDBD 19:13 → TELE 22:56 → TELE-CENTR 07-16 13:40
PROVIDERS: ADMIT Nurse Practitioner Family; ATTEND Internal Medicine Geriatric Medicine
DX: I16.0 Hypertensive urgency (principal); N17.9 Acute kidney failure, unspecified; I25.118 Atherosclerotic heart disease of native coronary artery with other forms of angina pectoris; D72.829 Elevated white blood cell count, unspecified; E11.65 Type 2 diabetes mellitus with hyperglycemia; N18.9 Chronic kidney disease, unspecified; E11.22 Type 2 diabetes mellitus with diabetic chronic kidney disease; I12.9 Hypertensive chronic kidney disease with stage 1 through stage 4 chronic kidney disease, or unspecified chronic kidney disease; E78.2 Mixed hyperlipidemia; E03.9 Hypothyroidism, unspecified; Z79.4 Long term (current) use of insulin; Z79.82 Long term (current) use of aspirin; Z98.61 Coronary angioplasty status; I25.2 Old myocardial infarction; Z79.899 Other long term (current) drug therapy; Z79.84 Long term (current) use of oral hypoglycemic drugs
CPT/HCPCS: 36415; 71045; 80048; 80053; 82962; 83880; 84443; 84484; 85025; 93005; 93306; 99291; G0378; J1815; J2405; J3490

== ENCOUNTER 2025-03-25 11:05 | Inpatient (IN) | payer MEDICARE, MEDICAID ==
[~2025-03-25] VITALS: Ht 152.4 cm; Wt 54.1 kg
[~2025-03-25 11:05] MED LIST: AMLO1TAB22 PO; ASPI1TAB20 PO; B-COCAP34 OR; CARV25TA55 PO; CHOL20007 PO; COEN400C8 OR; CYAN-17 PO; CYCL-837 PO; EMPA1TAB PO; EZET-10 PO; INSLANTI SC; LEVO50TA7 PO; LISI10TA34 PO; MAGN100T6 OR; MAGN400T40 PO; METF500S3 PO; MULT-1018 PO; PANT40TA2 PO; TRAM50TA2 PO
--- NOTE | 2025-03-25 11:32 | ECG ---
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
--- NOTE | 2025-03-25 12:03 | ED.PDOC ---
HPI (NEURO) HPI Comments This is an 84 year-old female, with a Hx of DM, CKF, and [place], who presents to the ED with a chief complaint of emesis, lightheadedness, headache, and confusion. Patient reports having a headache around 2000 last night, where she took a nap on the couch and woke up confused, with an inability to remember her name, or the date. Patient reports additional symptoms of constant emesis for about x2 hours last night, after waking up. Patient states she was experiencing some acute epigastric diarrhea yesterday, due to PMHx of gastric bypass. Patient has no further complaints at this time and otherwise denies further associated symptoms of hematemesis, fever, chills, dizziness, head trauma, chest pain, slurred speech, or weakness. 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 Hx Family History Family History: Reviewed,noncontributory to illness Social History Smoker: Non-Smoker Alcohol: Denies ETOH Use Drugs: Denies Drug Use Lives In: Home Constitutional: reports: others (general confusion ); denies: chills, diaphoresis, fatigue, fever, malaise, sweats, weakness EENTM: denies: blurred vision, double vision, ear bleeding, ear discharge, ear drainage, ear pain, ear ringing, eye pain, eye redness, hearing loss, mouth pain, mouth swelling, nasal discharge, nose bleeding, nose congestion, nose pain, photophobia, tearing, throat pain, throat swelling, voice changes, others Respiratory: denies: cough, hemoptysis, orthopnea, SOB at rest, shortness of breath, SOB with excertion, stridor, wheezing, others Cardiovascular: denies: chest pain, dizzy spells, diaphoresis, Dyspnea on exertion, edema, irregular heart beat, left arm pain, lightheadedness, palpitations, PND, syncope, others Gastrointestinal: reports: nausea, vomiting; denies: abdomen distended, abdominal pain, blood streaked bowels, constipated, diarrhea, dysphagia, difficulty swallowing, hematemesis, melena, poor appetite, poor fluid intake, rectal bleeding, rectal pain, others Genitourinary: denies: abnormal vagina bleeding, burning, dyspareunia, dysuria, flank pain, frequency, hematuria, incontinence, pain, , vagina discharge, urgency, others Neurological: reports: headache, others (lightheadedness); denies: dizziness, fainting, left sided numbness, left sided weakness, numbness, paresthesia, pre- existing deficit, right sided numbness, right sided weakness, seizure, speech problems, tingling, tremors, weakness Musculoskeletal: denies: back pain, gout, joint pain, joint swelling, muscle pain, muscle stiffness, neck pain, others Integumetry: denies: bruises, change in color, change in hair/nails, dryness, laceration, lesions, lumps, rash, wounds, others Allergic/Immunocompromised: denies: Difficulty Healing, Frequent Infections, Hives, Itching, others Hematologic/Lymphatic: denies: anemia, blood clots, easy bleeding, easy bruising, swollen glands, others Endocrine: denies: excessive hunger, excessive sweating, excessive thirst, excessive urination, flushing, intolerance to cold, intolerance to heat, unexplained weight gain, unexplained weight loss, others Psychiatric: denies: anxiety, bipolar disorder, depression, hopeless, panic disorder, schizophrenia, sleepless, suicidal, others All Other Systems: Reviewed and Negative Physical Exam General Appearance: No Apparent Distress, Normal HEENT: Normal ENT Inspection, Pharynx Normal, TMs Normal Neck: Full Range of Motion, Non-Tender, Normal, Normal Inspection Respiratory: Chest Non-Tender, Lungs Clear, No Accessory Muscle Use, No Respiratory Distress, Normal Breath Sounds Cardiovascular: No Edema, No JVD, No Murmur, No Gallop, Normal Peripheral Pulses, Regular Rate/Rhythm Breast Exam: Deferred Gastrointestinal: No Organomegaly, Non Tender, No Pulsatile Mass, Normal Bowel Sounds, Soft Genitalia: Deferred Pelvic: Deferred Rectal: Deferred Extremities: No calf tenderness, Normal capillary refill, Normal inspection, Normal range of motion, Non-tender, No pedal edema Musculoskeletal : Apperance: Normal Neurologic: Alert, relaster II-XII nml as Tested, No Motor Deficits, Normal Affect, Normal Mood, No Sensory Deficits, Other (5/5 strength bilateral upper and lower extremities, no facial droop no slurred speech) Cerebellar Function: Normal Reflexes: Normal Skin: Dry, Normal Color, Warm Lymphatic: No Adenopathy EKG EKG : Comments Sinus rhythm rate of [address] changes Was a procedure done? Was a procedure done?: No Differential Diagnosis (SZ) Seizure: Other CVA: CVA, Delirium Tremens, Drug Overdose, Mass Lesion, Other (Concern for possible TIA. Other differential also includes cardiac disease, acute arrhythmia, UTI, pneumonia, electrolyte disturbance dehydration.) General Weakness: Other Headache: Other X-Ray, Labs, Meds, VS Vital Signs Date Time Temp Pulse Resp B/P (MAP) Pulse Ox O2 Delivery O2 Flow Rate FiO2 03/25/25 11:08 98.2 74 16 154/80 99 98.2 Lab Test 03/25/25 13:00 03/25/25 12:25 Range/Units Urine Color Yellow Yellow Urine Clarity Clear Clear Urine pH 5.5 5.0-9.0 Urine Specific [place] 1.029 1.001-1.035 Urine Protein 1+ H Negative Urine Ketones Negative Negative Urine Blood Negative Negative /uL Urine Nitrite Negative Negative Urine Bilirubin Negative Negative Urine Urobilinogen Normal Negative mg/dL Urine Leukocyte Esterase 1+ Negative /uL Urine RBC 2 0 - 4 /hpf Urine Microscopic WBC 7 H 0-5 /HPF Urine Squamous Epithelial Cells Few <5 /hpf Urine Bacteria None seen None Seen /hpf Urine Glucose 4+ H Normal mg/dL Urine Opiates Screen Neg NEGATIVE Urine Fentanyl Screen Neg NEGATIVE Urine Barbiturates Screen Neg NEGATIVE Urine Phencyclidine Screen Neg NEGATIVE Urine Amphetamines Screen Neg NEGATIVE Urine Benzodiazepines Screen Neg NEGATIVE Urine Cocaine Screen Neg NEGATIVE Urine Cannabinoids Screen Neg NEGATIVE White Blood Count 10.6 4.4-10.8 10^3/uL Red Blood Count 4.69 4.0-5.20 10^6/uL Hemoglobin 15.1 12.2-16.2 g/dL Hematocrit 44.1 36.0-46.0 % Mean Corpuscular Volume 94.0 80.0-100.0 fL Mean Corpuscular Hemoglobin 32.2 H 28.0-32.0 pg Mean Corpuscular Hemoglobin Concent 34.2 32.0-36.0 g/dL Red Cell Distribution Width 12.4 11.8-14.3 % Platelet Count 349 140-450 10^3/uL Mean Platelet Volume 8.3 6.9-10.8 fL Neutrophils (%) (Auto) 65.1 37.0-80.0 % Lymphocytes (%) (Auto) 25.6 10.0-50.0 % Monocytes (%) (Auto) 7.1 0.0-12.0 % Eosinophils (%) (Auto) 1.6 0.0-7.0 % Basophils (%) (Auto) 0.6 0.0-2.0 % Neutrophils # (Auto) 6.9 1.6-8.6 10 ^3/uL Lymphocytes # (Auto) 2.7 0.4-5.4 10 ^3/uL Monocytes # (Auto) 0.8 0-1.3 10 ^3/uL Eosinophils # (Auto) 0.2 0-0.8 10 ^3/uL Basophils # (Auto) 0.1 0-0.2 10 ^3/uL Nucleated Red Blood Cells 0.0 % Sodium Level 141 136-145 mmol/L Potassium Level 4.3 3.5-5.1 mmol/L Chloride Level 103 98-107 mmol/L Carbon Dioxide Level 27 20-31 mmol/L Anion Gap 11 5-15 Blood Urea Nitrogen 26 H 9-23 mg/dL Creatinine 1.31 H 0.550-1.02 mg/dL Glomerular Filtration Rate Calc 41 >90 mL/min BUN/Creatinine Ratio 19.8 10.0-20.0 Serum Glucose 176 H 74-106 mg/dL Hemoglobin A1c 7.3 H <5.7 % A1C Calcium Level 9.9 8.7-10.4 mg/dL Total Bilirubin 0.6 0.2-1.0 mg/dL Aspartate Amino Transferase (AST) 24 13-40 U/L Alanine Aminotransferase (ALT) 16 7-40 U/L Alkaline Phosphatase 86 46-116 U/L Troponin I High Sensitivity 18 </=34 ng/L Total Protein 7.0 5.7-8.2 g/dL Albumin 4.5 3.2-4.8 g/dL Current Medications Medications (Trade) Dose Ordered Sig/Marko Route Start Time Stop Time Status Last Admin Ondansetron HCl (Zofran) 4 mg ONCE ONCE IV 03/25/25 12:45 03/25/25 12:46 DC 03/25/25 15:18 Sodium Chloride 500 ml @ 500 mls/hr Q1H ONCE IV 03/25/25 12:45 03/25/25 13:44 DC 03/25/25 15:19 Aspirin 162 mg ONCE ONCE PO 03/25/25 13:00 03/25/25 13:01 DC 03/25/25 15:17 [place] [id number] Ph: [phone] DIAGNOSTIC IMAGING Diagnostic Imaging Report : [id number] Signed PATIENT: MARTI MEZA ACCT: [id number] UNIT: [id number] : 1940 LOC: OVERFLOW ROOM / BED: [address] [place] [address] / AGE / SEX: 84 / F ADM STATUS: ADM IN SERVICE 120 ORDERING PHYSICIAN: KHANH MOSQUEDA MD PROCEDURE(s): HWOCT - HEAD WITHOUT CONTRAST REASON: Dizziness ORDER NUMBER(s): [id number], ACCESSION NUMBER(s): [id number] CLINICAL INFORMATION: Dizziness. TECHNIQUE: Axial imaging was obtained through the brain without contrast. Coronal and sagittal reformatted images were obtained, reviewed, and stored. Images were reviewed in brain and bone windows. All CT scans at this medical facility are performed using dose modulation techniques as appropriate to a performed exam including the following: Automated exposure control was utilized; adjustment of the MA and/or KV according to patient size; and use of iterative reconstruction technique. CTDIvol = 48.65 mGy DLP = 780.16 mGy-cm COMPARISON: CT HEAD WITHOUT CONTRAST on DOS: 11/01/24, CT NECK WO W CONTRAST SOFT on DOS: 06/10/23 FINDINGS: There is no acute intracranial hemorrhage. No mass effect or midline shift. Scattered areas of hypoattenuation are seen in the periventricular and subcortical white matter, which are nonspecific but most likely sequelae of small vessel ischemic disease. Small chronic lacunar infarct in the right basal ganglia. The ventricles and sulci are within normal limits in size for age. Basal cisterns are patent. The calvarium is unremarkable. Paranasal sinuses and mastoid air cells are clear. IMPRESSION: 1. No CT evidence of acute intracranial abnormality. 2. Nonacute findings as described above. 84-year-old female presents here with episode of confusion that lasted approximately an hour that began yesterday around 8:00 p.m. to 9:00 p.m.. She states she has never had this happen to her before. On my examination she is a very sharp 84-year-old female and is currently neurologically intact. She denies any weakness to 1 arm or 1 leg during this episode of confusion but states it is highly abnormal for her. She denies any other symptoms. At this time I have ordered a CBC, CMP, troponin, chest x-ray, CT scan of the brain, as well as urinalysis. Concern for possible TIA. Other differential also includes cardiac disease, acute arrhythmia, UTI, pneumonia, electrolyte disturbance dehydration. At this time CBC has returned normal. CMP with evidence of acute kidney injury. Urine has no infection but does demonstrate significant glucose. Chest x-ray with no evidence of infection. CT scan of the brain is unremarkable. At this time though I am concerned about possible TIA. Hospitalist team has been contacted. I have written for aspirin for the patient. Images Reviewed?: Images reviewed and evaluated by me Time of 1ST Reevaluation: 13:41 Reevaluation 1ST: Unchanged Patient Education/Counseling: Diagnosis, Treatment Family Education/Counseling: No Family Present Departure 1 Departure Time of Disposition: 14:43 Impression: Primary Impression: TIA (transient ischemic attack) Additional Impressions: Acute kidney injury Glucosuria Disposition: 50 HOSPICE/HOME Condition: Fair Critical Care Note Critical Care Time?: No Stability Stability form required: No Heart Score Heart Score: Heart Score Response (Comments) Value History Slightly Suspicious 0 EKG Normal 0 Age >65 2 Risk Factors 1 or 2 risk factors 1 Troponin Normal limit 0 Total 3 I personally scribed for KHANH MOSQUEDA MD ([email or web address]) on 03/25/25 at 13:05. Electronically submitted by Rebecca Eric ([employer]). I personally scribed for KHANH MOSQUEDA MD ([email or web address]) on 03/25/25 at 14:26. Electronically submitted by Rebecca Eric ([employer]). KHANH MOSQUEDA MD Mar 25, 2025 12:03
--- NOTE | 2025-03-25 12:53 | DVHHP2 ---
History of Present Illness Reason for Visit: nausea and vomiting with dizziness History of Present Illness Silver Ha is an 84-year-old female with past medical history of CKD, diabetes, hypertension, hypothyroidism, dumping syndrome, thyroidectomy, ovarian tumor, gastric bypass, bilateral eye surgery, hysterectomy, left breast cancer, left torn rotator cuff non operable, back surgery, and right leg surgery who presents to the ED with nausea, vomiting, and dizziness that started yesterday. Patient reports that she has a history of dumping syndrome and any little issue with specific foods will cause her to have nausea and vomiting. Patient also reports that she ambulates with a cane. Patient also reports of a headache. She reports that she lives alone in her apartment. She had reported that yesterday she did not know her name or where she was and when she came to she called EMS for help. She reports that she ate [employer] chicken yesterday. Patient denies any recent trauma or injury, recent sick contacts, recent travels, recent ingestion of spoiled food, chest pain, shortness of breath, fever, chills, lightheadedness, weakness, abdominal pain, or diarrhea. Cardiovascular: HTN Renal/: Chronic renal insuff Endocrine: Diabetes, Hypothyroidism Past Medical History Dumping syndrome Ovarian tumor Left breast cancer Left torn rotator cuff not operable Past Surgical History: Hysterectomy, Other (Thyroidectomy, gastric bypass, bilateral eye surgery, back surgery, and right leg surgery) Family History: DM, Other (Mom and dad with diabetes and heart disease.) Smoke: No ALCOHOL: none Drugs: None Lives: Alone Domestic Violence: Neg Review of Systems Constitutional: Yes: Other (Dizziness) Gastrointestinal: Nausea, Vomiting Allergies: Coded Allergies: Atorvastatin (Unverified Allergy, Unknown, 07/18/24) gives patient severe leg cramps Exam Vital Signs Vital Signs Date Time Temp Pulse Resp B/P (MAP) Pulse Ox O2 Delivery O2 Flow Rate FiO2 03/25/25 11:08 98.2 74 16 154/80 99 98.2 General Appearance: Alert, Oriented X3, Cooperative, No acute distress HEENT: Atraumatic, PERRLA, EOMI, Mucous membr. moist/pink Respiratory: Clear to auscultation, Normal air movement Cardiovascular: Regular rate, Normal S1, Normal S2, No murmurs Abdominal: Normal bowel sounds, Soft Extremities: Normal pulses Neuro: Normal speech, Normal tone, Sensation intact Psych/Mental Status: Mental status NL, Mood NL Labs/Xrays Labs Test 03/25/25 12:25 Range/Units SEPSIS Sepsis Screen Date sepsis recognized/suspect: Mar 25, 2025 Time Sepsis recognized/suspect: 1108 Recent Procedure: No On Antibiotic Therapy: No Respiratory Rate >20: No Heart Rate >90: No Temp<36 C (96.8 F) or >38.3 C: No SBP <90 or MAP <65 mmHG: No New Acute Mental Status Change: No Is the patient on CPAP, BIPAP,: No Physician Orders Troponin-I Hs (03/25/25 12:02) Complete Blood Count (03/25/25 12:02) Comprehensive Metabolic Panel (03/25/25 12:02) Chest Two Views Routine (03/25/25 12:02) Head Without Contrast (03/25/25 12:02) Troponin-I Hs (03/25/25 13:02) Urinalysis (03/25/25 12:02) Sodium Chloride 0.9% (03/25/25 12:45) Aspirin Tablet (03/25/25 13:00) Vital Signs Date Time Temp Pulse Resp B/P (MAP) Pulse Ox O2 Delivery O2 Flow Rate FiO2 03/25/25 11:08 98.2 74 16 154/80 99 98.2 Laboratory Tests Test 03/25/25 12:25 White Blood Count Pending Assessment/Plan Assessment/Plan Assessment Intractable nausea and vomiting likely due to UTI Autonomic imbalance likely due to UTI MOLLY likely prerenal History of CKD History of diabetes History of hypertension History of hypothyroidism History of dumping syndrome History of thyroidectomy History of ovarian tumor History of gastric bypass History of bilateral eye surgery History of hysterectomy History of left breast cancer History of left torn rotator cuff non operable History of back surgery History of right leg surgery Plan Admit to [facility] IV antibiotics-ceftriaxone CT head UA UDS Hemoglobin A1c ISS and Accu-Cheks Antiemetics Pain management Diet Home medications reconciled DVT prophylaxis-SCDs PUD prophylaxis-PPIs Discussed plan of care with patient and nurse [id number] Preventive counseling healthy eating habits, physical activity, and regular checkups Plan discussed with: Patient Date of Service: Mar 25, 2025 Billing Provider: KAREN PLATA Common Visit Codes: 73653-NURMBRX INP/OBS CARE (HIGH) Secondary Visit Codes: 40116-[id number] COUNSELING IND KAREN PLATA [facility] Mar 25, 2025 12:53
[2025-03-25 13:12] LABS: Hematocrit 44.1 % (36.0-46.0); Hemoglobin 15.1 g/dL (12.2-16.2); Mean Corpuscular Hemoglobin 32.2 pg (28.0-32.0); Mean Corpuscular Volume 94.0 fL (80.0-100.0); Nucleated Red Blood Cells % 0.0 %
[2025-03-25 13:20] LABS: Alanine Aminotransferase 16 U/L (7-40); Albumin 4.5 g/dL (3.2-4.8); Alkaline Phosphatase 86 U/L (46-116); Anion Gap 11 (5-15); BUN/Creatinine Ratio 19.8 (10.0-20.0); Bilirubin, Total 0.6 mg/dL (0.2-1.0); Calcium 9.9 mg/dL (8.7-10.4); Carbon Dioxide 27 mmol/L (20-31); Chloride 103 mmol/L (98-107); Potassium 4.3 mmol/L (3.5-5.1); Sodium 141 mmol/L (136-145); Total Protein 7.0 g/dL (5.7-8.2)
[2025-03-25 13:26] LABS: Blood Urea Nitrogen 26 mg/dL (9-23); Glucose 176 mg/dL (74-106)
[2025-03-25] MEDS ORDERED: ACETAMINOPHEN 325 MG TAB PO PRN (13:30)
[2025-03-25] MEDS ORDERED: HYDROcodone-ACET 5/325MG TAB PO PRN (13:30)
[2025-03-25] MEDS ORDERED: DEXTROSE (50%) 50ML SYRG IV PRN (13:30)
[2025-03-25] MEDS ORDERED: ONDANSETRON HCL 4 MG/2 ML VIAL IV PRN (13:30)
[2025-03-25 13:59] LABS: Urine Protein, UAD 1+ (Negative)
[2025-03-25 14:15] LABS: Barbiturate Scree,Urine Neg (NEGATIVE); Benzodiazephine Screen, Urine Neg (NEGATIVE); Opiate Scree,Urine Neg (NEGATIVE); Phencyclidine Screen, Urine Neg (NEGATIVE)
[2025-03-25 14:17] LABS: Amphetamine Screen, Urine Neg (NEGATIVE); Cannabinoid Screen, Urine Neg (NEGATIVE); Cocaine Screen, Urine Neg (NEGATIVE)
--- NOTE | 2025-03-25 14:24 | DVH ---
CLINICAL INFORMATION: Dizziness. TECHNIQUE: Axial imaging was obtained through the brain without contrast. Coronal and sagittal reform atted images were obtained, reviewed, and stored. Images were reviewed in brain and bone windows. Al l CT scans at this medical facility are performed using dose modulation techniques as appropriate to a performed exam including the following: Automated exposure control was utilized; adjustment of the MA and/or KV according to patient size; and use of iterative reconstruction technique. CTDIvol = 48.6 5 mGy DLP = 780.16 mGy-cm COMPARISON: CT HEAD WITHOUT CONTRAST on DOS: 11/01/24, CT NECK WO W CONTRAST SOFT on DOS: 06/10/23 FINDINGS: There is no acute intracranial hemorrhage. No mass effect or midline shift. Scattered areas of hypoattenuation are seen in the periventricular and subcortical white matter, which are nonspecif ic but most likely sequelae of small vessel ischemic disease. Small chronic lacunar infarct in the ri ght basal ganglia. The ventricles and sulci are within normal limits in size for age. Basal cisterns are patent. The calvarium is unremarkable. Paranasal sinuses and mastoid air cells are clear. IMPRESSION: 1. No CT evidence of acute intracranial abnormality. 2. Nonacute findings as described above.
[2025-03-25 14:52] VITALS: PULSE 59; RESP 16; O2SAT 97
--- NOTE | 2025-03-25 14:55 | DVH ---
CLINICAL INFORMATION: Pneumonia. TECHNIQUE: Frontal and lateral chest radiographs were obtained. COMPARISON: XY CHEST PORTABLE on DOS: 11/01/24, XY CHEST PORTABLE on DOS: 07/15/24 FINDINGS: Lungs: Clear. Cardiac: Heart size is within normal limits. Pulmonary vasculature: Unremarkable Mediastinum/em: Within normal limits. Bones: No evidence of acute osseous abnormality. 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 Other: No other significant finding. IMPRESSION: No evidence of acute disease in the chest.
[2025-03-25] MEDS: ONDANSETRON HCL 4 MG/2 ML VIAL IV ONE (15:18)
[2025-03-25] MEDS: SODIUM CHLORIDE 0.9% 500 ML IV ONE (15:19)
[2025-03-25] MEDS: InsuLIN REG 1unit/0.01ml Soln (100units/ml) SC SCH (18:50)
[2025-03-25] MEDS: ACCU-CHEK COMFORT CURVE STRIP VI SCH (18:51)
[2025-03-25 19:51] VITALS: BP 137/71; PULSE 61; RESP 16; TEMP 98.4; O2SAT 95
[2025-03-25] MEDS ORDERED: CARVEDILOL 12.5 MG TAB PO SCH (22:00)
[2025-03-26] MEDS ORDERED: LEVOTHYROXINE SODIUM 50 MCG TAB PO SCH (07:00)
[2025-03-26] MEDS ORDERED: ASPirin-EC 81 mg tab PO SCH (10:00)
[2025-03-26] MEDS ORDERED: PROTONIX 20 MG PO SCH (10:00)
[2025-03-26] MEDS ORDERED: LISINOPRIL 5 MG TAB PO SCH (10:00)
== END 2025-03-25 21:13 | disposition left against medical advice (07) | DRG 74 ==
LOC: EDUNIT# 11:05 → ER 11:05 → EDBD 11:05 → OVERFLOW 13:16
DX: G90.89 Other disorders of autonomic nervous system (principal); N39.0 Urinary tract infection, site not specified; G45.9 Transient cerebral ischemic attack, unspecified; N17.9 Acute kidney failure, unspecified; N18.9 Chronic kidney disease, unspecified; E11.22 Type 2 diabetes mellitus with diabetic chronic kidney disease; I12.9 Hypertensive chronic kidney disease with stage 1 through stage 4 chronic kidney disease, or unspecified chronic kidney disease; E03.9 Hypothyroidism, unspecified; Z53.29 Procedure and treatment not carried out because of patient's decision for other reasons; Z60.2 Problems related to living alone; Z90.710 Acquired absence of both cervix and uterus; Z85.3 Personal history of malignant neoplasm of breast; I25.2 Old myocardial infarction; Z98.84 Bariatric surgery status; Z79.4 Long term (current) use of insulin; Z83.3 Family history of diabetes mellitus; Z82.49 Family history of ischemic heart disease and other diseases of the circulatory system; Z88.8 Allergy status to other drugs, medicaments and biological substances
CPT/HCPCS: 36415; 70450; 71046; 80053; 80307; 81001; 82962; 83036; 84484; 85025; 93005; 96365; 96375; G0378; J1815; J2405